=== PATIENT | female | born 2000 | race Caucasian/White ===

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

== ENCOUNTER 2021-04-18 03:18 | Emergency (ER) | payer OTHER ==
[~2021-04-18] VITALS: Ht 160 cm; Wt 45.5 kg
[2021-04-18] MEDS ORDERED: NS 1,000 ML IV ONE (03:35)
[2021-04-18] MEDS ORDERED: diphenhydrAMINE 50MG/ML VIAL (J1200) IV ONE (03:35)
[2021-04-18] MEDS ORDERED: METOCLOPRAMIDE INJ 10MG/2ML VIAL (J2765 PER 1) IV ONE (03:35)
[2021-04-18] MEDS ORDERED: ACETAMINOPHEN 500 MG TAB PO ONE (03:35)
[2021-04-18 05:53] VITALS: BP 105/58
== END 2021-04-18 05:55 | disposition home or self-care (01) ==
LOC: M ED 03:18
DX: G43.909 Migraine, unspecified, not intractable, without status migrainosus (principal)
CPT/HCPCS: 96361; 96374; 96375; 99284; J1200; J2765